=== PATIENT | female | born 1965 | race African-American/Black ===

== ENCOUNTER 2017-12-18 14:46 | Outpatient (CLI) | payer OTHER | END 2017-12-18 14:47 | disposition home or self-care (01) | LOC: BICMAMMO 14:46 | PROVIDERS: ATTEND Specialist | DX: Z08 Encounter for follow-up examination after completed treatment for malignant neoplasm (principal); Z85.3 Personal history of malignant neoplasm of breast | CPT/HCPCS: 77066; 87480; 87510; 87660; G0279 ==

== ENCOUNTER 2018-01-19 08:46 | Outpatient (CLI) | payer OTHER | END 2018-01-19 08:47 | disposition home or self-care (01) | LOC: BICULT 08:46 | PROVIDERS: ATTEND Specialist | DX: Z08 Encounter for follow-up examination after completed treatment for malignant neoplasm (principal); Z85.3 Personal history of malignant neoplasm of breast ==

== ENCOUNTER → 2018-02-28 | Day surgery (SDC) | payer MEDICAID | LOC: BICULT 09:15 | PROVIDERS: ATTEND Specialist | PROC: 0HBT3ZX Excision of Right Breast, Percutaneous Approach, Diagnostic (ICD-10-PCS; principal; 2018-02-28) | DX: N64.89 Other specified disorders of breast (principal) | CPT/HCPCS: 19083; 88112; 88305 ==

== ENCOUNTER 2018-04-12 11:27 | Outpatient (CLI) | payer OTHER ==
[2018-04-12 12:39] LABS: #Eosinphils 0.1 thou/uL (0.0-0.7); #Lymphocytes 2.3 thou/uL (1.20-3.40); #Monocytes 0.6 thou/uL (0.11-0.59); %Basophils 0.2 % (0.0-1.0); %Eosinophils 1.4 % (0.0-10.0); %Lymphocytes 28.7 % (21.0-51.0); %Monocytes 7.6 % (0.0-10.0); %Neutrophils 62.1 % (42.0-75.0); Hemoglobin 13.5 g/dL (12.0-16.0); Mean Corpuscular Hemoglobin 27.1 pg (27.0-31.0); Mean Corpuscular Volume 82.2 fl (81.0-99.0); Mean Platelet Volume 8.4 fL (7.4-10.4); Platelet Count 245 thou/uL (130-400); RBC Distribution Width 12.4 % (11.5-14.5); Red Blood Cell (RBC) Count 4.99 mill/uL (4.20-5.40); White Blood Cell (WBC) Count 8.1 thou/uL (4.8-10.8)
== END 2018-04-12 11:28 | disposition home or self-care (01) ==
LOC: LABBT 11:27
PROVIDERS: ATTEND Obstetrics & Gynecology
DX: Z01.812 Encounter for preprocedural laboratory examination (principal); N95.0 Postmenopausal bleeding
CPT/HCPCS: 85025; 86850; 86900; 86901

== ENCOUNTER 2018-04-16 06:50 | Day surgery (SDC) | payer OTHER ==
[2018-04-16] MEDS ORDERED: CEFAZOLIN/Water 2 GM/20 ML SYRINGE ONE (07:26)
[2018-04-16] MEDS ORDERED: Midazolam HCl 2 mg/2 ml Vial ONE (08:41)
--- NOTE | 2018-04-16 08:45 | HP ---
HISTORY OF PRESENT ILLNESS: Ms. Andrew is a 52-year-old -Serbian woman, who is on with a his tory of breast cancer, who is on adjuvant tamoxifen therapy. She is followed by Dr. Steffi Yates, On cology. She was referred for ADY Pap smear on routine screening. She denied any vaginal bleeding c onsistent with postmenopausal bleeding. A colposcopy directed evaluation of the cervix along with endocervical curettage and endometrial biop sy was performed at the visit on 02/07/2018. The biopsy of the cervix and endocervix were benign. T he endometrial biopsy obtained showed endometrial polyp. No atypia was noted. Due to the findings o f a polyp on endometrial biopsy and atypical glandular cells on Pap smear along with the patient's us e of tamoxifen therapy, a diagnostic hysteroscopy with D&C has been recommended and will be performed . 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 She has some chronic lower back pain, for which she takes naproxen. CURRENT MEDICATIONS: Her current meds are multivitamin, naproxen 250 mg daily, and tamoxifen 20 mg d aily. SOCIAL HISTORY: Nonsmoker, no alcohol consumption. She is . ALLERGIES: She has no known drug allergies. FAMILY HISTORY: Reported essential hypertension, diabetes, and breast cancer in her mother. PHYSICAL EXAMINATION: VITAL SIGNS: Her blood pressure is 130/88, pulse 76, respirations 18, height 63 inches, weight 258 w ith a BMI of 45.7. HEENT: Normal. CHEST: Clear to auscultation. HEART: Regular rate and rhythm. S1, S2 heart sounds, no murmurs, rubs, or gallops. ABDOMEN: Soft, nontender. PELVIC: Vulva, vagina had no lesions. Cervix had no lesions. A random biopsy of cervix was perform ed. Endocervical chart curettage was performed also along with endometrial biopsy with the previousl y mentioned findings as per HPI. Uterus was not enlarged. On exam adnexa were nontender. ASSESSMENT: This is a 52-year-old -Serbian female with DCIS of the right breast in the past of admission that has been on tamoxifen therapy for adjuvant therapy now with atypical glandular cell s on recent Pap smear. Colposcopy directed biopsy of the cervix and endocervical curettage were ki gn. An endometrial biopsy showed evidence of endometrial polyp. PLAN: Proceed with diagnostic hysteroscopy and D&C of the endometrium for further evaluation and rem oval of the endometrial polyps and also further evaluation of the atypical glandular cells on Pap sme ar and patient's concomitant use of tamoxifen. Risks and benefits of procedure discussed in detail, and she is scheduled for surgery on 04/16/2018.
[2018-04-16] MEDS ORDERED: HYDROmorphone 0.5 MG/0.5 ML SYRINGE ONE (09:03)
--- NOTE | 2018-04-16 11:44 | OP ---
DATE OF PROCEDURE: 04/16/2018 PREOPERATIVE DIAGNOSES: 1. A 52-year-old female with history of ductal carcinoma in situ of the right breas t on tamoxifen therapy. 2. Endometrial polyp. POSTOPERATIVE DIAGNOSES: 1. A 52-year-old female with history of ductal carcinoma in situ of the right breas t on tamoxifen therapy. 2. Endometrial polyp. PROCEDURES PERFORMED: Diagnostic hysteroscopy with TruClear system with resection of endometrial jennifer yp and dilatation and curettage of endometrial cavity. SURGEON: Uzma Jones M.D. ANESTHESIA: General. ESTIMATED BLOOD LOSS: Less than 10 mL. COMPLICATIONS: None. COUNTS: Correct x2. HYSTEROSCOPIC FLUID DISTENSION: 70 mL. FLUID DEFICIT: 70 mL normal saline. PATHOLOGY: Endometrial polyp and endometrial curettings. FINDINGS: Large endometrial polyp filling the uterine cavity attached to the anterior fundus, status post resection. Otherwise, no abnormalities of the uterine cavity or endocervical canal noted. DISPOSITION: To the recovery room, then day stay and discharged home. DESCRIPTION OF OPERATIVE PROCEDURE: The patient previously received informed consent in regards to rox daley. She was taken back to the operating room where she received a general anesthetic agent witho ut complications. She was placed in dorsal lithotomy position with use of Isaiah stirrups and prepped and draped in usual sterile fashion. In and out catheterization of bladder was performed. At this time, a side-arm speculum was placed in the vagina. Anterior lip of cervix grasped with single tooth tenaculum. Uterus sounded to 8 cm. Uterus was dilated to size 20 mm Lazar dilator. The TruClear h ysteroscope was then assembled and placed through the cervical os and uterus distended with the previ ously mentioned findings. The incisor device was then placed through the operative sheath and the en dometrial polyp was then resected under direct visualization. Once this was felt to be adequately re sected, the hysteroscope was removed and sharp curettage of the cavity was then performed and the end ometrial curettings were sent for final pathologic diagnosis. Hysteroscope was then reintroduced int o the cavity and the cavity again was inspected with no other lesions seen behind the previous polyp site. The hysteroscope was removed. Fluid deficit 70 mL was confirmed. The tenaculum was removed. A sponge stick was placed on the tenaculum site for hemostasis. Speculum was then removed. The spo nge stick removed. The patient was awakened from anesthesia and transferred to the recovery in [facility] e condition.
[2018-04-16] MEDS ORDERED: Ondansetron HCl/PF 4 MG/2 ML Vial ONE (12:17)
[2018-04-16] MEDS ORDERED: Dexamethasone 20 MG/5 ML VIAL ONE (12:17)
[2018-04-16] MEDS ORDERED: PROPOFOL 200 MG/20 ML VIAL ONE (12:17)
[2018-04-16] MEDS ORDERED: Lidocaine 1% PF 5 ML VIAL ONE (12:17)
[2018-04-16] MEDS ORDERED: Ketorolac Tromethamine 30 MG/ML VIAL ONE (12:17)
== END 2018-04-16 12:35 | disposition home or self-care (01) ==
LOC: SDC 06:50
PROVIDERS: ATTEND Obstetrics & Gynecology
PROC: 0UDB8ZX Extraction of Endometrium, Via Natural or Artificial Opening Endoscopic, Diagnostic (ICD-10-PCS; principal; 2018-04-16)
DX: N84.0 Polyp of corpus uteri (principal); Z79.899 Other long term (current) drug therapy; Z85.3 Personal history of malignant neoplasm of breast
CPT/HCPCS: 88305; J1100; J1170; J1885; J2001; J2250; J2405; J2704

== ENCOUNTER 2018-06-22 12:46 | Outpatient (CLI) | payer OTHER | END 2018-06-22 12:47 | disposition home or self-care (01) | LOC: BICULT 12:46 | PROVIDERS: ATTEND Family Medicine | DX: M79.89 Other specified soft tissue disorders (principal) ==

== ENCOUNTER 2018-11-29 10:14 | Outpatient (CLI) | payer OTHER | END 2018-11-29 10:15 | disposition home or self-care (01) | LOC: BICMAMMO 10:14 | PROVIDERS: ATTEND Family Medicine | DX: Z08 Encounter for follow-up examination after completed treatment for malignant neoplasm (principal); Z85.3 Personal history of malignant neoplasm of breast; Z80.3 Family history of malignant neoplasm of breast | CPT/HCPCS: 77066; G0279 ==

== ENCOUNTER 2019-12-31 10:35 | Outpatient (CLI) | payer OTHER ==
--- NOTE | 2019-12-31 14:01 | MMO ---
Bilateral MAMMO Bilat Screen DDI. CLINICAL HISTORY: Patient is 54 years old and is seen for screening. The patient has the following family history of breast cancer: mother and sister, at age 48. The patient has a history of lumpectomy procedure revealed ductal carcinoma in situ. in the right breast in June, and Stereotactic core biopsy procedure revealed ductal carcinoma in situ. in the right breast in June,. The patient has a history of right Ultrasound Guided Core Biopsy in February, - benign, right Lumpectomy in June, - dcis and right Stereotatic Biopsy in May, - dcis. VIEWS: The views performed were: bilateral craniocaudal; bilateral mediolateral oblique; and right exaggerated craniocaudal. FILMS COMPARED: The present examination has been compared to prior imaging studies performed at [facility] on 05/16/2016, 11/21/2016, 12/18/2017 and 11/29/2018. This study has been interpreted with the assistance of computer-aided detection. MAMMOGRAM FINDINGS: There are scattered fibroglandular densities. There are calcifications with associated post operative change seen in the upper-outer region of the right breast. Calcifications may be dystrophic but have increased in number. In the left breast, there are no suspicious masses, calcifications or areas of architectural distortion. IMPRESSION: CALCIFICATIONS IN THE RIGHT BREAST REQUIRE ADDITIONAL EVALUATION. MAGNIFICATION VIEWS ARE RECOMMENDED. ACR BI-RADS Category 0 - Incomplete: Need additional imaging evaluation. [facility] will notify the patient of the need for additional imaging services. MAMMOGRAPHY NOTE: 1. A negative mammogram report should not delay a biopsy if a dominant of clinically suspicious mass is present. 2. Approximately 10% to 15% of breast cancers are not detected by mammography. 3. Adenosis and dense breasts may obscure an underlying neoplasm. Reported by: VINOD SUTTON MD Electonically Signed: [id number]
== END 2019-12-31 10:36 | disposition home or self-care (01) ==
LOC: BICMAMMO 10:35
PROVIDERS: ATTEND Internal Medicine Hematology & Oncology
DX: Z12.31 Encounter for screening mammogram for malignant neoplasm of breast (principal); Z85.3 Personal history of malignant neoplasm of breast; Z80.3 Family history of malignant neoplasm of breast; Z91.89 Other specified personal risk factors, not elsewhere classified; R92.1 Mammographic calcification found on diagnostic imaging of breast
CPT/HCPCS: 77067

== ENCOUNTER 2020-01-13 10:11 | Outpatient (CLI) | payer OTHER ==
--- NOTE | 2020-01-13 11:00 | MMO ---
Right Breast MAMMO Unilat Diag DDI RT+SOTO. CLINICAL HISTORY: Patient is 54 years old and is seen for additional evaluation requested from prior study. The patient has the following family history of breast cancer: mother and sister, at age 48. The patient has a history of lumpectomy procedure revealed ductal carcinoma in situ. in the right breast in June, and Stereotactic core biopsy procedure revealed ductal carcinoma in situ. in the right breast in June,. The patient has a history of right Ultrasound Guided Core Biopsy in February, - benign, right Lumpectomy in June, - dcis and right Stereotatic Biopsy in May, - dcis. VIEWS: The views performed were: right craniocaudal spot compression magnification; right mediolateral spot compression magnification; right mediolateral with tomosynthesis; right exaggerated craniocaudal spot compression magnification; and right exaggerated craniocaudal spot compression with tomosynthesis. FILMS COMPARED: The present examination has been compared to prior imaging studies performed at [facility] on 11/21/2016, 12/18/2017, 11/29/2018 and 12/31/2019. This study has been interpreted with the assistance of computer-aided detection. MAMMOGRAM FINDINGS: There are scattered fibroglandular densities. Finding 1: There is a stable post-surgical scar seen in the right breast. Finding 2: There are benign appearing calcifications with associated post-surgical scar seen in the right breast. Calcifications associated with area of fat necrosis in the area of scar There are no suspicious masses, suspicious calcifications, or new areas of architectural distortion. IMPRESSION: THERE IS NO MAMMOGRAPHIC EVIDENCE OF MALIGNANCY. A ROUTINE FOLLOW-UP MAMMOGRAM IN 1 YEAR IS RECOMMENDED. THE RESULTS OF THIS EXAM WERE SENT TO THE PATIENT. ACR BI-RADS Category 2 - Benign finding MAMMOGRAPHY NOTE: 1. A negative mammogram report should not delay a biopsy if a dominant of clinically suspicious mass is present. 2. Approximately 10% to 15% of breast cancers are not detected by mammography. 3. Adenosis and dense breasts may obscure an underlying neoplasm. Reported by: EVE KOENIG MD Electonically Signed: [id number]
== END 2020-01-13 10:12 | disposition home or self-care (01) ==
LOC: BICMAMMO 10:11
PROVIDERS: ATTEND Internal Medicine Hematology & Oncology
DX: R92.1 Mammographic calcification found on diagnostic imaging of breast (principal)
CPT/HCPCS: G0279

== ENCOUNTER 2020-04-23 10:08 | Day surgery (SDC) | payer OTHER ==
[2020-04-17 12:49] VITALS: BMI 47.5
[2020-04-20 12:24] LABS: Hemoglobin 10.7 g/dL (12.0-16.0); Mean Corpuscular HGB CONC 31.7 g/dL (32.0-36.0); Mean Corpuscular Hemoglobin 26.5 pg (27.0-31.0); Mean Corpuscular Volume 83.6 fL (78.0-98.0); Mean Platelet Volume 8.8 fL (7.4-10.4); Platelet Count 358 thou/uL (130-400); RBC Distribution Width 13.6 % (11.5-14.5); Red Blood Cell (RBC) Count 4.05 mill/uL (4.20-5.40); White Blood Cell (WBC) Count 8.7 thou/uL (4.8-10.8)
[2020-04-21 13:09] LABS: SARS-CoV-2 MS2 Positive; SARS-CoV-2 N Gene Negative; SARS-CoV-2 S Gene Negative; SARS-CoV-2 orf1ab Negative
[2020-04-23] MEDS ORDERED: Acetaminophen 500 MG TAB ONE (10:45)
[2020-04-23] MEDS ORDERED: Fentanyl 100 MCG/2 ML VIAL ONE (11:53)
[2020-04-23] MEDS ORDERED: HYDROcodone/Acetaminophen 5/325 mg Tablet ONE (14:09)
[2020-04-23] MEDS ORDERED: Lidocaine 1% PF 5 ML VIAL ONE (15:06)
[2020-04-23] MEDS ORDERED: PROPOFOL 200 MG/20 ML VIAL ONE (15:06)
[2020-04-23] MEDS ORDERED: EPHEDRINE 25 MG/5 ML SYRINGE ONE (15:06)
[2020-04-23] MEDS ORDERED: Ondansetron PF 4 MG/2 ML Vial ONE (15:06)
[2020-04-23] MEDS ORDERED: Dexamethasone 20 MG/5 ML VIAL ONE (15:06)
--- NOTE | 2020-04-23 18:12 | EKG ---
Test Reason : PREOP Blood Pressure : / mmHG Vent. Rate : 063 BPM Atrial Rate : 063 BPM P-R Int : 152 ms QRS Dur : 092 ms QT Int : 424 ms P-R-T Axes : 049 088 039 degrees QTc Int : 433 ms Normal sinus rhythm Normal ECG When compared with ECG of 27-JUN-2014 08:55, No significant change was found Confirmed by DR. Frank YAÑEZ ([id number]) on 04/23/2020 6:11:40 PM Referred By: AKI Confirmed By:DR. Frank YAÑEZ
--- NOTE | 2020-04-23 19:53 | OP ---
DATE OF PROCEDURE: 04/23/2020 PREOPERATIVE DIAGNOSES: 1. A 54-year-old female, previous tamoxifen use with irregular perimenopausal bleeding. 2. Thickened endometrium suggestive of endometrial polyps. POSTOPERATIVE DIAGNOSES: 1. A 54-year-old female, previous tamoxifen use with irregular perimenopausal bleeding. 2. Thickened endometrium suggestive of endometrial polyps. PROCEDURES PERFORMED: Diagnostic hysteroscopy with resection of endometrial polyp and dilatation and curettage. ANESTHESIA: General. ESTIMATED BLOOD LOSS: Less than 10 mL. Fluid deficit from the hysteroscopy was 150 mL of normal saline. FINDINGS: Uterine cavity had atrophic appearing lining and the polypoid mass extending from the posterior midportion of the uterine wall, status post excision in removal. Otherwise, no abnormalities noted. Fluid deficit was 150 mL of normal saline. DISPOSITION: Recovery room, then for discharge home. DESCRIPTION OF PROCEDURE: The patient previously received informed consent in regard to surgery. She was taken back to the operating room, where she received a general anesthetic agent without complications. She was placed in dorsal lithotomy position with the use of Isaiah stirrups, prepped and draped in usual sterile fashion. In-and-out catheterization of bladder was performed at this time. A side-arm speculum was placed in the vagina. The anterior lip of the cervix was grasped with single-tooth tenaculum. The uterus sounded to 8 cm. The cervix was then sequentially dilated to a size 18 Lazar dilator, and a size 5 mm diagnostic hysteroscope at the [employer] ([employer] system was then advanced through the cervix into the uterine cavity, and the uterus was distended with saline at 80 mm of pressure. The previously mentioned findings were noted, and they were photodocumented. The 5 mm tissue incisor device was then placed through the operative channel and then under direct visualization, the polypoid lesion was excised. Once this had been taken down adequately, the remainder of the uterine cavity was then curetted with a sharp curettage, removing the remainder of the tissue and endometrial curettings were sent. The hysteroscope was reintroduced, and the uterine cavity appeared clear of the polypoid lesion with thin lining noted. The fluid deficit was noted to be 150 mL of saline. No active bleeding was appreciated that was significant supracervically. The tenaculum was removed. It was hemostatic at the tenaculum site. The speculum was then removed. The patient was awakened from anesthesia, transferred to recovery room in stable condition. Job ID: [id number]
== END 2020-04-23 15:15 | disposition home or self-care (01) ==
LOC: SDC 10:08
PROVIDERS: ATTEND Obstetrics & Gynecology
PROC: 0UB98ZZ Excision of Uterus, Via Natural or Artificial Opening Endoscopic (ICD-10-PCS; principal; 2020-04-23)
PROC: 0UDB8ZZ Extraction of Endometrium, Via Natural or Artificial Opening Endoscopic (ICD-10-PCS; principal; 2020-04-23)
DX: N84.0 Polyp of corpus uteri (principal); E03.9 Hypothyroidism, unspecified; E11.9 Type 2 diabetes mellitus without complications; I10 Essential (primary) hypertension; Z79.84 Long term (current) use of oral hypoglycemic drugs; Z79.899 Other long term (current) drug therapy
CPT/HCPCS: 85027; 86850; 86900; 86901; 87635; 88305; 93005; 93010; J0690; J1100; J2001; J2405; J2704; J3010; U0003

== ENCOUNTER 2021-02-18 09:54 | Outpatient (CLI) | payer OTHER | END 2021-02-18 09:55 | disposition home or self-care (01) | LOC: BICMAMMO 09:54 | PROVIDERS: ATTEND Specialist | DX: Z12.31 Encounter for screening mammogram for malignant neoplasm of breast (principal); Z80.3 Family history of malignant neoplasm of breast; Z85.3 Personal history of malignant neoplasm of breast; Z91.89 Other specified personal risk factors, not elsewhere classified | CPT/HCPCS: 77067 ==

== ENCOUNTER 2022-05-20 08:12 | Outpatient (CLI) | payer OTHER ==
[2022-05-20 10:07] LABS: Hemoglobin 12.2 g/dL (12.0-15.5); Mean Corpuscular HGB CONC 32.4 g/dL (32.0-36.0); Mean Corpuscular Hemoglobin 26.6 pg (27.0-33.0); Mean Corpuscular Volume 82.1 fl (81.6-98.3); Mean Platelet Volume 11.2 fl (7.4-10.4); Platelet Count 303 10x3/uL (150-450); RBC Distribution Width 13.4 % (11.5-14.5); Red Blood Cell (RBC) Count 4.59 10x6/uL (3.90-5.03); White Blood Cell (WBC) Count 8.6 10x3/uL (3.5-10.5)
[2022-05-20 10:17] LABS: BHCG - Serum Negative (NEGATIVE); Pregs Control Background? CLEAR/WHITE (CLR/WHITE); Pregs Control Bar Appear? YES (CONTROL BAR)
== END 2022-05-20 08:13 | disposition home or self-care (01) ==
LOC: LABBT 08:12
PROVIDERS: ATTEND Student in an Organized Health Care Education/Training Program
DX: Z01.818 Encounter for other preprocedural examination (principal); R22.1 Localized swelling, mass and lump, neck; Z20.822 Contact with and (suspected) exposure to COVID-19
CPT/HCPCS: 84703; 85027; 87811; 93005; 93010

== ENCOUNTER 2022-05-24 10:18 | Day surgery (SDC) | payer OTHER ==
[2022-05-20 15:03] VITALS: BMI 45.5
[2022-05-24] MEDS ORDERED: Lidocaine 1% w/Epinephrine 1:100K 20 ML VIAL ONE (11:58)
[2022-05-24] MEDS ORDERED: fentaNYL Citrate/PF 100 MCG/2 ML SYRINGE ONE (12:06)
[2022-05-24] MEDS ORDERED: SUGAMMADEX SODIUM 200 MG/2 ML VIAL ONE (12:06)
[2022-05-24] MEDS ORDERED: Famotidine/PF 20 mg/2ml Vial ONE (12:06)
[2022-05-24] MEDS ORDERED: Sodium Chloride 0.9% 100 ML ONE (12:28)
[2022-05-24] MEDS ORDERED: CEFAZOLIN 2 GM VIAL ONE (12:28)
[2022-05-24] MEDS ORDERED: Rocuronium Bromide 10 MG/ML (10ML VIAL) ONE (12:34)
[2022-05-24] MEDS ORDERED: Metoclopramide HCl 10 MG/2 ML VIAL ONE (12:34)
[2022-05-24] MEDS ORDERED: Ondansetron PF 4 MG/2 ML Vial ONE (12:34)
[2022-05-24] MEDS ORDERED: Lidocaine 1% PF 5 ML VIAL ONE (12:34)
[2022-05-24] MEDS ORDERED: Dexamethasone 20 MG/5 ML VIAL ONE (12:34)
[2022-05-24] MEDS ORDERED: Ketorolac Tromethamine 30 MG/ML VIAL ONE (12:34)
[2022-05-24] MEDS ORDERED: PROPOFOL 200 MG/20 ML VIAL ONE (12:34)
[2022-05-24] MEDS ORDERED: Bacitracin Zinc Ointment 30 gm TUBE ONE (13:38)
== END 2022-05-24 15:09 | disposition home or self-care (01) ==
LOC: SDC 10:18
PROVIDERS: ATTEND Student in an Organized Health Care Education/Training Program
PROC: 0JB50ZZ Excision of Left Neck Subcutaneous Tissue and Fascia, Open Approach (ICD-10-PCS; principal; 2022-05-24)
DX: L72.0 Epidermal cyst (principal); M19.90 Unspecified osteoarthritis, unspecified site; Z87.891 Personal history of nicotine dependence; Z79.84 Long term (current) use of oral hypoglycemic drugs; Z79.890 Hormone replacement therapy; Z79.899 Other long term (current) drug therapy
CPT/HCPCS: 88304; C1776; J0690; J1100; J1885; J2405; J2704; J2765; J3490; S0028

== ENCOUNTER 2022-12-12 10:38 | Outpatient (CLI) | payer OTHER | END 2022-12-12 10:39 | disposition home or self-care (01) | LOC: ULT 10:38 | PROVIDERS: ATTEND Family Medicine | DX: E80.6 Other disorders of bilirubin metabolism (principal); K76.0 Fatty (change of) liver, not elsewhere classified; R93.2 Abnormal findings on diagnostic imaging of liver and biliary tract; Z90.49 Acquired absence of other specified parts of digestive tract | CPT/HCPCS: 76705 ==

== ENCOUNTER 2023-06-20 10:15 | Outpatient (CLI) | payer OTHER | END 2023-06-20 10:16 | disposition home or self-care (01) | LOC: BICMAMMO 10:15 | PROVIDERS: ATTEND Family Medicine | DX: Z12.31 Encounter for screening mammogram for malignant neoplasm of breast (principal); Z80.3 Family history of malignant neoplasm of breast; Z85.3 Personal history of malignant neoplasm of breast; Z91.89 Other specified personal risk factors, not elsewhere classified; Z98.890 Other specified postprocedural states | CPT/HCPCS: 77067 ==